=== PATIENT | female | born 1940 | race Caucasian/White ===

== ENCOUNTER 2024-04-03 15:27 | Observation (INO) ==
[2024-04-03] MEDS ORDERED: IOPAMIDOL 100 ML BOTTLE IV ONE (15:28)
[2024-04-03 16:06] LABS: Basophils # (Auto) 0.02 K/mcL (0.00-0.30); Basophils % (Auto) 0.2 % (0.0-2.0); Eosinophils # (Auto) 0.01 K/mcL (0.00-0.70); Eosinophils % (Auto) 0.1 % (0.0-7.0); Hematocrit 39.2 % (34.1-44.9); Hemoglobin 12.4 g/dL (11.2-15.7); Lymphocytes # (Auto) 1.14 K/mcL (1.50-4.80); Lymphocytes % (Auto) 11.8 % (15.5-49.0); Mean Cell Volume 98.5 fL (80.0-100.0); Mean Corpuscular HGB Conc 31.6 g/dL (31.0-36.0); Monocytes # (Auto) 0.38 K/mcL (0.10-0.90); Monocytes % (Auto) 3.9 % (1.0-12.0); Neutrophils % (Auto) 83.9 % (38.0-78.0); Platelet Count 287 K/mcL (140-440); RBC 3.98 M/mcL (3.59-5.38); Red Cell Distribution Width 13.3 % (11.5-14.5); WBC 9.7 K/mcL (4.5-11.0)
[2024-04-03 16:26] LABS: ALT/SGPT 21 U/L (<40); AST/SGOT 36 U/L (<32); Albumin 3.9 gm/dL (3.2-5.2); Albumin/Globulin Ratio 1.2 (1.0-2.3); Alkaline Phosphatase 83 U/L (39-117); Bilirubin,Total 0.4 mg/dL (0.1-1.0); Blood Urea Nitrogen 54 mg/dL (8-23); Calcium 9.4 mg/dL (8.6-10.4); Carbon Dioxide 30 mmol/L (22-30); Chloride 97 mmol/L (96-108); Globulin 3.3 gm/dL (2.2-3.7); Glomerular Filtration Rate 31; Glucose 142 mg/dL (70-105); Potassium 5.6 mmol/L (3.3-5.1); Sodium 137 mmol/L (133-145)
[2024-04-03] MEDS: fentaNYL 100 MCG/2 ML VIAL IV ONE (16:44)
[2024-04-03] MEDS: fentaNYL 100 MCG/2 ML VIAL IV PRN (18:38)
[2024-04-03 19:30] LABS: Appearance,Urine Clear (Clear); Bilirubin,Urine Negative (Negative); Color,Urine Yellow; Culture Indicated,Urine No; Glucose,Urine (UA) 100 mg/dL (Negative); Ketones,Urine Negative (Negative); Leukocyte Esterase,Urine Negative /uL (Negative); Nitrate,Urine Negative (Negative); Protein,Urine Negative (Negative); Urine Blood Negative ery/mcL (Negative); Urine Hyaline Cast 4 /lph (0-2); Urine RBC 1 /hpf (0-3); Urine Squamous Epithelial Cell 1 /hpf (0-4); Urine WBC 1 /hpf (0-4); Urobilinogen,Urine Normal
[2024-04-03] MEDS: FUROSEMIDE 40 MG/4 ML VIAL IV ONE (20:22)
[2024-04-03] MEDS ORDERED: traZODone HCL 50 MG TABLET PO PRN (21:52)
[2024-04-03] MEDS ORDERED: oxyCODONE IR 5 MG TABLET PO PRN (21:52)
[2024-04-03] MEDS ORDERED: DEXTROSE 31 GM ORAL.SUSP PO PRN (21:52)
[2024-04-03] MEDS ORDERED: DEXTROSE 50% 50 ML VIAL IV PRN (21:52)
[2024-04-03] MEDS ORDERED: morphine 4 MG/ML VIAL IV PRN (21:52)
[2024-04-03] MEDS ORDERED: IPRATROPIUM/ALBUTEROL 3 ML AMPUL.NEB NEB PRN (21:52)
[2024-04-03] MEDS ORDERED: ONDANSETRON 4 MG/2 ML VIAL IV PRN (21:52)
[2024-04-03] MEDS: LIDOCAINE 4% TOP PATCH TOPICAL SCH (22:35)
[2024-04-04] MEDS: 0.9 % SODIUM CHLORIDE 10 ML SYRINGE IV SCH (00:38)
[2024-04-04 06:40] LABS: Basophils # (Auto) 0.04 K/mcL (0.00-0.30); Basophils % (Auto) 0.4 % (0.0-2.0); Eosinophils % (Auto) 2.1 % (0.0-7.0); Hematocrit 37.7 % (34.1-44.9); Hemoglobin 11.8 g/dL (11.2-15.7); Lymphocytes # (Auto) 1.76 K/mcL (1.50-4.80); Lymphocytes % (Auto) 18.2 % (15.5-49.0); Mean Cell Volume 99.2 fL (80.0-100.0); Mean Corpuscular HGB Conc 31.3 g/dL (31.0-36.0); Monocytes # (Auto) 0.91 K/mcL (0.10-0.90); Monocytes % (Auto) 9.4 % (1.0-12.0); Neutrophils % (Auto) 69.6 % (38.0-78.0); Platelet Count 242 K/mcL (140-440); Red Cell Distribution Width 13.2 % (11.5-14.5); WBC 9.7 K/mcL (4.5-11.0)
[2024-04-04 07:20] LABS: ALT/SGPT 18 U/L (<40); AST/SGOT 28 U/L (<32); Albumin 3.6 gm/dL (3.2-5.2); Albumin/Globulin Ratio 1.3 (1.0-2.3); Alkaline Phosphatase 70 U/L (39-117); Bilirubin,Total 0.4 mg/dL (0.1-1.0); Blood Urea Nitrogen 48 mg/dL (8-23); Calcium 9.2 mg/dL (8.6-10.4); Carbon Dioxide 32 mmol/L (22-30); Chloride 100 mmol/L (96-108); Globulin 2.8 gm/dL (2.2-3.7); Glomerular Filtration Rate 37; Glucose 73 mg/dL (70-105); Potassium 4.5 mmol/L (3.3-5.1); Sodium 141 mmol/L (133-145)
[2024-04-04 07:41] LABS: Estimated Average Glucose(eAG) 111 mg/dL; Hemoglobin A1C 5.5 % Hgb (4.0-6.0)
[2024-04-04] MEDS: INSULIN LISPRO 1 UNIT/0.01 ML UNIT SQ SCH (07:52)
[2024-04-04] MEDS: DOCUSATE SODIUM 100 MG CAPSULE PO SCH (07:53)
[2024-04-04] MEDS ORDERED: ALBUTEROL SULFATE 60 PUFF INHALER INH PRN (11:19)
[2024-04-04] MEDS ORDERED: IPRATROPIUM/ALBUTEROL 3 ML AMPUL.NEB NEB PRN (11:42)
[2024-04-04] MEDS: predniSONE 20 MG TABLET PO SCH (12:13)
[2024-04-04] MEDS: TRIAMCINOLONE CREAM 0.1% 15G 1 DOSE TUBE TOPICAL SCH (20:34)
[2024-04-04] MEDS: SENNOSIDES 1 TABLET PO SCH (20:36)
[2024-04-04] MEDS: ACETAMINOPHEN 325 MG TABLET PO PRN (20:44)
[2024-04-04] MEDS ORDERED: APIXABAN 5 MG TABLET PO SCH (21:00)
[2024-04-05 06:51] LABS: Basophils # (Auto) 0.03 K/mcL (0.00-0.30); Basophils % (Auto) 0.4 % (0.0-2.0); Eosinophils # (Auto) 0.22 K/mcL (0.00-0.70); Eosinophils % (Auto) 2.7 % (0.0-7.0); Hematocrit 36.7 % (34.1-44.9); Lymphocytes # (Auto) 1.61 K/mcL (1.50-4.80); Lymphocytes % (Auto) 19.9 % (15.5-49.0); Mean Cell Volume 98.4 fL (80.0-100.0); Mean Corpuscular HGB Conc 32.7 g/dL (31.0-36.0); Mean Platelet Volume 9.9 fL (8.8-12.5); Monocytes # (Auto) 0.64 K/mcL (0.10-0.90); Monocytes % (Auto) 7.9 % (1.0-12.0); Platelet Count 246 K/mcL (140-440); RBC 3.73 M/mcL (3.59-5.38); Red Cell Distribution Width 12.9 % (11.5-14.5); WBC 8.1 K/mcL (4.5-11.0)
[2024-04-05 07:25] LABS: ALT/SGPT 15 U/L (<40); AST/SGOT 25 U/L (<32); Albumin 3.3 gm/dL (3.2-5.2); Albumin/Globulin Ratio 1.1 (1.0-2.3); Alkaline Phosphatase 68 U/L (39-117); Bilirubin,Total 0.4 mg/dL (0.1-1.0); Blood Urea Nitrogen 37 mg/dL (8-23); Calcium 9.1 mg/dL (8.6-10.4); Carbon Dioxide 30 mmol/L (22-30); Chloride 101 mmol/L (96-108); Globulin 2.9 gm/dL (2.2-3.7); Glomerular Filtration Rate 51; Glucose 84 mg/dL (70-105); Potassium 3.8 mmol/L (3.3-5.1); Sodium 140 mmol/L (133-145)
[2024-04-05] MEDS: METOPROLOL SUCCINATE 50 MG TAB.XL.24H PO SCH (08:35)
[2024-04-05] MEDS: TORSEMIDE 10 MG TABLET PO SCH (08:38)
[2024-04-05] MEDS: LIDOCAINE 4% TOP PATCH TOPICAL SCH (08:44)
[2024-04-05] MEDS ORDERED: KETOCONAZOLE 2% TOP CRM 15GM TUBE TOPICAL PRN (09:00)
[2024-04-05 09:45] LABS: Prothrombin Time 13.8 sec (11.9-14.5)
== END 2024-04-05 11:45 | disposition home or self-care (01) ==
LOC: MEDSUR 15:27 → ED 15:27 → MEDSUR 21:45
PROVIDERS: ADMIT Internal Medicine; ATTEND Internal Medicine

== ENCOUNTER 2024-07-17 10:45 | Inpatient (IN) ==
[2024-07-17] MEDS ORDERED: IOPAMIDOL 100 ML BOTTLE IV ONE (10:46)
[2024-07-17] MEDS: IPRATROPIUM/ALBUTEROL 3 ML AMPUL.NEB NEB ONE ×2 (11:24)
[2024-07-17 12:03] LABS: ABG Methemoglobin 0.2 % (0.4-1.5); VBG Base Excess 0 (-2-3); VBG HCO3 26.7 mmol/L (24.0-28.0); VBG Oxygen Saturation 62.1 % (40.0-70.0); VBG PCO2 49.5 mmHg (41.0-51.0); VBG PH 7.35 U (7.32-7.42); VBG PO2 33.8 mmHg (25.0-40.0); VBG Total CO2 28.2 mmol/L (25.0-29.0)
[2024-07-17] MEDS: AZITHROMYCIN 500 MG in DEXTROSE 5% IN WATER 250 ML IV ONE (12:15)
[2024-07-17] MEDS: cefTRIAXone 2 GM in DEXTROSE 5% IN WATER 50 ML IV ONE (12:15)
[2024-07-17 12:33] LABS: Basophils # (Auto) 0.04 K/mcL (0.00-0.30); Basophils % (Auto) 0.5 % (0.0-2.0); Eosinophils # (Auto) 0.23 K/mcL (0.00-0.70); Eosinophils % (Auto) 2.9 % (0.0-7.0); Hematocrit 45.7 % (34.1-44.9); Hemoglobin 14.3 g/dL (11.2-15.7); Lymphocytes # (Auto) 1.61 K/mcL (1.50-4.80); Mean Corpuscular HGB Conc 31.3 g/dL (31.0-36.0); Mean Platelet Volume 10.8 fL (8.8-12.5); Monocytes # (Auto) 0.65 K/mcL (0.10-0.90); Monocytes % (Auto) 8.1 % (1.0-12.0); Neutrophils % (Auto) 68.5 % (38.0-78.0); Platelet Count 215 K/mcL (140-440); RBC 4.97 M/mcL (3.59-5.38); Red Cell Distribution Width 14.3 % (11.5-14.5); WBC 8.1 K/mcL (4.5-11.0)
[2024-07-17] MEDS: methylPREDNISolone SOD SUCC 125 MG/2 ML VIAL IV ONE (12:36)
[2024-07-17] MEDS: LEVOFLOXACIN 750 MG/150 ML BAG IV ONE (12:40)
[2024-07-17 12:41] LABS: ALT/SGPT 21 U/L (<40); AST/SGOT 35 U/L (<32); Albumin 3.6 gm/dL (3.2-5.2); Albumin/Globulin Ratio 1.1 (1.0-2.3); Alkaline Phosphatase 76 U/L (39-117); Bilirubin,Total 0.7 mg/dL (0.1-1.0); Blood Urea Nitrogen 29 mg/dL (8-23); Calcium 9.6 mg/dL (8.6-10.4); Carbon Dioxide 27 mmol/L (22-30); Chloride 99 mmol/L (96-108); Globulin 3.3 gm/dL (2.2-3.7); Glomerular Filtration Rate 51; Glucose 97 mg/dL (70-105); Potassium 3.9 mmol/L (3.3-5.1); Sodium 137 mmol/L (133-145)
[2024-07-17 14:32] LABS: Appearance,Urine Clear (Clear); Bacteria,Urine 0 /hpf (0); Bilirubin,Urine Negative (Negative); Color,Urine Yellow; Glucose,Urine (UA) 250 mg/dL (Negative); Ketones,Urine Trace mg/dL (Negative); Leukocyte Esterase,Urine Negative /uL (Negative); Nitrate,Urine Negative (Negative); PH,Urine 5.5 (5.0-9.0); Protein,Urine Negative (Negative); Specific Gravity,Urine 1.015 (1.000-1.035); Urine Blood Negative ery/mcL (Negative); Urine RBC 0 /hpf (0-3); Urine Squamous Epithelial Cell 2 /hpf (0-4); Urine WBC 0 /hpf (0-4); Urobilinogen,Urine Normal
[2024-07-17] MEDS ORDERED: POTASSIUM CHLORIDE 40 MEQ in DEXTROSE 5% IN WATER 500 ML IV PRN (16:06)
[2024-07-17] MEDS ORDERED: METOPROLOL TARTRATE 5 MG/5 ML VIAL IV PRN (16:06)
[2024-07-17] MEDS ORDERED: DEXTROSE 31 GM ORAL.SUSP PO PRN (16:06)
[2024-07-17] MEDS ORDERED: MAGNESIUM SULFATE 2 GM/50 ML BAG IV PRN (16:06)
[2024-07-17] MEDS ORDERED: SENNOSIDES 1 TABLET PO PRN (16:06)
[2024-07-17] MEDS ORDERED: ONDANSETRON 4 MG/2 ML VIAL IV PRN (16:06)
[2024-07-17] MEDS ORDERED: METOCLOPRAMIDE 10 MG/2 ML VIAL IV PRN (16:06)
[2024-07-17] MEDS ORDERED: POTASSIUM CHLORIDE 20 MEQ TABLET PO PRN ×2 (16:06)
[2024-07-17] MEDS ORDERED: POLYETHYLENE GLYCOL 3350 17 GM PACKET PO PRN (16:06)
[2024-07-17] MEDS ORDERED: DEXTROSE 50% 50 ML VIAL IV PRN (16:06)
[2024-07-17] MEDS ORDERED: ACETAMINOPHEN 325 MG TABLET PO PRN (16:06)
[2024-07-17] MEDS: INSULIN LISPRO 1 UNIT/0.01 ML UNIT SQ SCH (17:35)
[2024-07-17 17:43] LABS: INR 1.1 (0.9-1.1); Prothrombin Time 14.4 sec (11.9-14.5)
[2024-07-17] MEDS: cefTRIAXone 1 GM VIAL IV SCH (18:09)
[2024-07-17] MEDS: AZITHROMYCIN 500 MG in DEXTROSE 5% IN WATER 250 ML IV SCH (18:10)
[2024-07-17] MEDS: IPRATROPIUM/ALBUTEROL 3 ML AMPUL.NEB NEB SCH (20:45)
[2024-07-17] MEDS: BUDESONIDE 0.5 MG/2 ML AMPUL.NEB NEB SCH (20:45)
[2024-07-17] MEDS: APIXABAN 5 MG TABLET PO SCH (20:50)
[2024-07-17] MEDS: guaiFENesin 600 MG TAB.SR.12H PO SCH (20:50)
[2024-07-17] MEDS: METOPROLOL SUCCINATE 50 MG TAB.XL.24H PO SCH (20:50)
[2024-07-17] MEDS: DOCUSATE SODIUM 100 MG CAPSULE PO SCH (20:51)
[2024-07-17] MEDS: 0.9 % SODIUM CHLORIDE 10 ML SYRINGE IV SCH (20:52)
[2024-07-18 06:32] LABS: Hematocrit 40.6 % (34.1-44.9); Hemoglobin 12.9 g/dL (11.2-15.7); Mean Cell Volume 92.5 fL (80.0-100.0); Mean Corpuscular HGB Conc 31.8 g/dL (31.0-36.0); Mean Platelet Volume 10.9 fL (8.8-12.5); Platelet Count 188 K/mcL (140-440); RBC 4.39 M/mcL (3.59-5.38); Red Cell Distribution Width 14.3 % (11.5-14.5)
[2024-07-18 06:45] LABS: ALT/SGPT 22 U/L (<40); AST/SGOT 33 U/L (<32); Albumin 3.2 gm/dL (3.2-5.2); Alkaline Phosphatase 66 U/L (39-117); Bilirubin,Direct < 0.2 mg/dL (0-0.3); Bilirubin,Total 0.4 mg/dL (0.1-1.0); Blood Urea Nitrogen 31 mg/dL (8-23); Calcium 9.6 mg/dL (8.6-10.4); Carbon Dioxide 24 mmol/L (22-30); Chloride 100 mmol/L (96-108); Globulin 3.2 gm/dL (2.2-3.7); Glomerular Filtration Rate 51; Glucose 152 mg/dL (70-105); Lactate Dehydrogenase 179 U/L (135-225); Phosphorous 3.4 mg/dL (2.5-4.5); Sodium 137 mmol/L (133-145); Triglycerides 46 mg/dL (<150); Uric Acid 7.4 mg/dL (2.5-8.0)
[2024-07-18 06:52] LABS: Band Neutrophils % 2 % (0-10); Lymphocytes % 7 % (15-49); Monocytes % (Manual) 1 % (1-12); Platelet Estimate NORMAL (Normal); RBC Morphology NORMAL (Normal); Segmented Neutrophils % 90 % (38-78)
[2024-07-18] MEDS: METOPROLOL SUCCINATE 50 MG TAB.XL.24H PO SCH (08:50)
[2024-07-18] MEDS: TORSEMIDE 20 MG TABLET PO SCH (08:50)
[2024-07-18] MEDS: predniSONE 20 MG TABLET PO SCH (08:51)
[2024-07-18] MEDS: AZITHROMYCIN 500 MG in 0.9 % SODIUM CHLORIDE 250 ML IV SCH (09:53)
[2024-07-18] MEDS ORDERED: BISACODYL 5 MG TABLET PO PRN (10:21)
[2024-07-18] MEDS: FLEETS ADULT 1 DOSE ENEMA PR PRN (16:31)
[2024-07-19 06:47] LABS: ALT/SGPT 26 U/L (<40); AST/SGOT 38 U/L (<32); Albumin 3.4 gm/dL (3.2-5.2); Alkaline Phosphatase 70 U/L (39-117); Bilirubin,Direct < 0.2 mg/dL (0-0.3); Bilirubin,Total 0.4 mg/dL (0.1-1.0); Blood Urea Nitrogen 45 mg/dL (8-23); Calcium 9.7 mg/dL (8.6-10.4); Carbon Dioxide 25 mmol/L (22-30); Chloride 102 mmol/L (96-108); Globulin 3.3 gm/dL (2.2-3.7); Glomerular Filtration Rate 46; Glucose 101 mg/dL (70-105); Lactate Dehydrogenase 191 U/L (135-225); Phosphorous 4.2 mg/dL (2.5-4.5); Potassium 3.8 mmol/L (3.3-5.1); Sodium 140 mmol/L (133-145); Triglycerides 64 mg/dL (<150); Uric Acid 7.8 mg/dL (2.5-8.0)
[2024-07-19] MEDS: IPRATROPIUM/ALBUTEROL 3 ML AMPUL.NEB NEB PRN (07:28)
[2024-07-19] MEDS ORDERED: APIXABAN 5 MG TABLET PO SCH (21:00)
== END 2024-07-19 13:28 | disposition home or self-care (01) | DRG 193 ==
LOC: ED 10:45 → MEDSUR 15:46
PROVIDERS: ADMIT Internal Medicine; ATTEND Internal Medicine